=== PATIENT | female | born 1980 | race Caucasian/White ===

== ENCOUNTER → 2018-05-14 11:31 | Outpatient (CLI) | payer OTHER, SELFPAY ==
[2018-05-16 10:39] LABS: Cancer Antigen 125 13.3 U/mL (0.0-38.1)
== END ==
PROVIDERS: Visit Provider Obstetrics & Gynecology
DX: Z80.41 Family history of malignant neoplasm of ovary (principal)
CPT/HCPCS: 36415; 86304